=== PATIENT | male | born 1975 | race African-American/Black ===

== ENCOUNTER 2021-11-02 15:24 | Emergency (ER) | payer BC ==
[~2021-11-02] VITALS: Ht 180.3 cm; Wt 67.7 kg
[2021-11-02] MEDS ORDERED: IBUPROFEN 600 MG TAB PO STA (15:45)
[2021-11-02] MEDS ORDERED: CYCLOBENZAPRINE HCL 10 MG TAB PO ONE (15:45)
[2021-11-02] MEDS ORDERED: CYCLOBENZAPRINE5 MG PO (16:10)
[2021-11-02] MEDS ORDERED: NAPROSYN500 MG PO (16:10)
[2021-11-02] MEDS ORDERED: IBUPROFEN 600 MG TAB ONE (16:39)
== END 2021-11-02 16:30 | disposition home or self-care (01) ==
LOC: FSED 15:46
DX: M79.18 Myalgia, other site (principal); M54.9 Dorsalgia, unspecified; F17.210 Nicotine dependence, cigarettes, uncomplicated
CPT/HCPCS: 71045; 99283

== ENCOUNTER 2023-02-08 13:10 | Emergency (ER) | payer OTHER, BC ==
[~2023-02-08] VITALS: Ht 180.3 cm; Wt 67.3 kg
[~2023-02-08 13:10] MED LIST: CYCLOBENZAPRINE5 MG PO; NAPROSYN500 MG PO
[2023-02-08 14:38] VITALS: O2SAT 100
== END 2023-02-08 14:48 | disposition home or self-care (01) ==
LOC: FSED 13:19
DX: R50.9 Fever, unspecified (principal); S90.121A Contusion of right lesser toe(s) without damage to nail, initial encounter; R26.2 Difficulty in walking, not elsewhere classified; W22.8XXA Striking against or struck by other objects, initial encounter; Y92.89 Other specified places as the place of occurrence of the external cause; F17.210 Nicotine dependence, cigarettes, uncomplicated
CPT/HCPCS: 99283

== ENCOUNTER 2023-03-01 12:46 | Emergency (ER) | payer BC ==
[~2023-03-01] VITALS: Ht 180.3 cm; Wt 70.3 kg
[2023-03-01 13:11] VITALS: O2SAT 97
[2023-03-01] MEDS ORDERED: CEFDINIR300 MG PO (13:24)
== END 2023-03-01 13:49 | disposition home or self-care (01) ==
LOC: FSED 12:53
DX: N30.91 Cystitis, unspecified with hematuria (principal); F17.210 Nicotine dependence, cigarettes, uncomplicated
CPT/HCPCS: 81003; 99282